=== PATIENT | male | born 1980 | race Caucasian/White ===

== ENCOUNTER 2019-05-01 15:59 | Outpatient (CLI) | payer BC ==
--- NOTE | 2019-05-01 18:38 | MRI ---
EXAM: MRI thoracic spine without contrast HISTORY: Pain between the scapula for 11 years COMPARISON: None TECHNIQUE: Multiplanar multisequence MR images were obtained of the thoracic spine without contrast. FINDINGS: The vertebral bodies and intervertebral discs demonstrate normal height and alignment without fractur e or subluxation. The visualized cord demonstrates normal signal throughout. The prevertebral soft tissues are unremarkable. No paraspinal soft tissue abnormality is seen. T1/2: No significant posterior bulge or protrusion. No posterior facet arthrosis. No central canal stenosis. No neural foraminal stenosis. T2/3: No significant posterior bulge or protrusion. No posterior facet arthrosis. No central canal stenosis. No neural foraminal stenosis. T3/4: No significant posterior bulge or protrusion. No posterior facet arthrosis. No central canal stenosis. No neural foraminal stenosis. T4/5: No significant posterior bulge or protrusion. No posterior facet arthrosis. No central canal stenosis. No neural foraminal stenosis. T5/6: No significant posterior bulge or protrusion. No posterior facet arthrosis. No central canal stenosis. No neural foraminal stenosis. T6/7: No significant posterior bulge or protrusion. No posterior facet arthrosis. No central canal stenosis. No neural foraminal stenosis. T7/8: No significant posterior bulge or protrusion. No posterior facet arthrosis. No central canal stenosis. No neural foraminal stenosis. T8/9: No significant posterior bulge or protrusion. No posterior facet arthrosis. No central canal stenosis. No neural foraminal stenosis. T9/10: No significant posterior bulge or protrusion. No posterior facet arthrosis. No central canal stenosis. No neural foraminal stenosis. T10/11: No significant posterior bulge or protrusion. No posterior facet arthrosis. No central lisette l stenosis. No neural foraminal stenosis. T11/12: No significant posterior bulge or protrusion. No posterior facet arthrosis. No central lisette l stenosis. No neural foraminal stenosis. T12/L1: No significant posterior bulge or protrusion. No posterior facet arthrosis. No central lisette l stenosis. No neural foraminal stenosis. IMPRESSION: No significant thoracic abnormality.
== END 2019-05-01 16:00 | disposition home or self-care (01) ==
LOC: SCSMRI 15:59
PROVIDERS: ATTEND Physical Medicine & Rehabilitation
DX: M54.6 Pain in thoracic spine (principal)
CPT/HCPCS: 72146

== ENCOUNTER 2019-07-02 16:04 | Outpatient (CLI) | payer BC ==
--- NOTE | 2019-07-02 16:54 | RAD ---
Exam: 6 views cervical spine HISTORY: Frequent migraines. History of thoracic disc herniation. Bilateral occipital neuralgia FINDINGS: There is no prevertebral soft tissue swelling Predental space is normal In the lateral neutral position, adequate evaluation of the cervical spine from C1 through C3 C6-C7 d isc space. Suboptimal evaluation of the C7 vertebral body the cervicothoracic junction. In this lateral neutral position, there is straightening of normal cervical lordosis. No abnormal motion upon flexion or extension. On the AP projection, no malalignment. Despite providing a swimmer's view, Limited evaluation of the C7 vertebral body of the cervicothoraci c junction On the open-mouth projection, lateral masses of C1 and C2 articulate appropriately. The tip of the od ontoid process is obscured. IMPRESSION: Nonspecific straightening of normal cervical lordosis which may be due to patient positio n or muscle spasm. No symmetric and loss of disc space height. No evidence of fractures or malalignment. Transcribed Date/Time: 07/02/2019 5:19 PM
== END 2019-07-02 16:05 | disposition home or self-care (01) ==
LOC: BICRAD 16:04
PROVIDERS: ATTEND Nurse Practitioner Family
DX: M54.81 Occipital neuralgia (principal); M40.50 Lordosis, unspecified, site unspecified
CPT/HCPCS: 72050